=== PATIENT | male | born 1990 | race Caucasian/White ===

== ENCOUNTER 2017-04-05 04:19 | Emergency (ER) | payer OTHER ==
[~2017-04-05] VITALS: Ht 182.9 cm; Wt 77.1 kg
[~2017-04-05 04:19] MED LIST: CIPR-262 PO; DIAZ5TAB
[2017-04-05 04:25] VITALS: BP 141/98
== END 2017-04-05 05:31 | disposition home or self-care (01) ==
LOC: ER 04:22
DX: K08.89 Other specified disorders of teeth and supporting structures (principal); J02.9 Acute pharyngitis, unspecified; F10.10 Alcohol abuse, uncomplicated
CPT/HCPCS: 99283; A4606; Z7610

== ENCOUNTER 2021-01-12 09:22 | Emergency (ER) | payer OTHER ==
[~2021-01-12] VITALS: Ht 182.9 cm; Wt 79.4 kg
--- NOTE | 2021-01-12 09:37 | NUR ---
PATIENT BIBS FOR C/O HEADACHE, NECK AND SHOULDER SORENESS AND NIGHT SWEATS SINCE SATURDAY. WAS AT URGENT CARE SATURDAY AND WAS PUT ON ANTIBIOTICS FOR SINUS INFECTION. O RESPIRATORY DISTRESS NOTED. PATIENT ALERT AND ORIENTED X4. DR LOFTON AT BEDSIDE
--- NOTE | 2021-01-12 10:28 | NUR ---
covid swab done and sent to the lab
[2021-01-12 10:30] LABS: BASOPHILS % (AUTO) 0.5 % (0.0-2.0); HEMATOCRIT 40 % (39-51); HEMOGLOBIN 13.3 g/dL (13.5-17.5); LYMPHOCYTES # (AUTO) 1.4 K/uL (0.8-4.8); LYMPHOCYTES % (AUTO) 26.1 % (20.0-44.0); MEAN CORPUSCULAR HGB CONC 33 g/dl (31.0-36.0); MEAN CORPUSCULAR VOLUME 93 fL (80-96); MONOCYTES # (AUTO) 0.7 K/uL (0.1-1.30); MONOCYTES % (AUTO) 14.4 % (2.0-12.0); PLATELET COUNT (AUTO) 239 K/uL (150-450); WHITE BLOOD COUNT (AUTO) 5.2 K/uL (4.3-11.0)
[2021-01-12 10:38] LABS: CALCIUM, SERUM 8.5 mg/dL (8.5-10.1); CARBON DIOXIDE 28 mmol/L (21-32); CHLORIDE 106 mmol/L (98-107); CREATININE 0.9 mg/dL (0.6-1.3); GLUCOSE 101 mg/dL (74-106); SODIUM SERUM 142 mmol/L (136-145); UREA NITROGEN, BLOOD 16 mg/dL (7-18)
[2021-01-12 10:42] LABS: ALANINE AMINOTRANSFERASE 28 U/L (12-78); ALBUMIN 3.4 g/dL (3.4-5.0); ALKALINE PHOSPHATASE 69 U/L (46-116); ASPARTATE AMINOTRANSFERASE 18 U/L (15-37); BILIRUBIN,DIRECT 0.1 mg/dL (0.0-0.2); BILIRUBIN,TOTAL 0.2 mg/dL (0.2-1.0); TOTAL PROTEIN, SERUM 7.1 g/dL (6.4-8.2)
--- NOTE | 2021-01-12 10:45 | NUR ---
URINE COLLECTED AND SENT TO THE LAB
[2021-01-12 11:15] LABS: BILIRUBIN,URINE Negative (NEGATIVE); COLOR,URINE YELLOW (YELLOW); LEUKOCYTE ESTERASE ,URINE Negative (NEGATIVE); NITRITE, URINE Negative (NEGATIVE); PROTEIN,URINE Negative (NEGATIVE); UGLUCOSE Negative (NEGATIVE); UROBILINOGEN,URINE 0.2 EU/dL (0.2)
--- NOTE | 2021-01-12 12:10 | NUR ---
Patient discharged to home in stable condition. Written and verbal after care instructions given. Patient verbalizes understanding of instruction.
[2021-01-12 12:11] VITALS: BP 134/80
== END 2021-01-12 12:11 | disposition home or self-care (01) ==
LOC: ER 09:27
DX: R51.9 Headache, unspecified (principal); R61 Generalized hyperhidrosis; Z20.822 Contact with and (suspected) exposure to COVID-19
CPT/HCPCS: 36415; 70450; 71045; 80048; 80076; 81003; 84484; 85025; 85652; 87426; 99285; C9803